=== PATIENT | female | born 1950 | race Caucasian/White ===

== ENCOUNTER 2018-05-14 07:32 | Emergency (ER) | payer MEDICAID, MEDICARE, OTHER ==
[2018-05-14 08:05] VITALS: BP 137/78
--- NOTE | 2018-05-14 08:16 | UC ---
Complaint Female HPI - HPI Summary HPI Summary: 68 female presents to the urgent care c/o Pt c/o some blood, and pain upon urination for the past 3 days. Pt states sx have gotten better, but worried about infection. - History Of Current Complaint Chief Complaint: UCGU Stated Complaint: URINARY ISSUE Time Seen by Provider: 05/14/18 08:15 Hx Obtained From: Patient Onset/Duration: Lasting Days - 3 days, Still Present - mild Severity Initially: Moderate Severity Currently: Mild Pain Intensity: 3 Pain Scale Used: 0-10 Numeric Character: Burning Aggravating Factor(s): Urination Associated Signs And Symptoms: Positive: Negative. Negative: Fever, Back Pain, Vaginal Discharge, Nausea, Vomiting(# Of Episodes =), Genital Swelling Related Hx: Similar Episode/Dx as: - UTI a month ago - Allergies/Home Medications Allergies/Adverse Reactions: Allergies Allergy/AdvReac Type Severity Reaction Status Date / Time clindamycin Allergy Intermediate Diarrhea Verified 05/14/18 07:55 Penicillins Allergy Intermediate Diarrhea Verified 05/14/18 07:55 ciprofloxacin Allergy Unknown Verified 05/14/18 07:55 Reaction Details PMH/Surg Hx/FS Hx/Imm Hx Previously Healthy: Yes - Pt denies PMHX - Surgical History Surgical History: Yes Surgery Procedure, Year, and Place: facial reconstruction as a child - 1965, tonsils - Family History Known Family History: Positive: Hypertension Family History: brain cancer - Social History Occupation: Unemployed Lives: Alone Alcohol Use: Occasionally Alcohol Amount: 12oz Substance Use Type: None Smoking Status (MU): Light Every Day Tobacco Smoker Amount Used/How Often: 2 cigs/ day Household Exposure Type: Cigarettes - Immunization History Most Recent Influenza Vaccination: unknown Most Recent Tetanus Shot: unknown Most Recent Pneumonia Vaccination: unknown Review of Systems All Other Systems Reviewed And Are Negative: Yes Physical Exam - Summary Physical Exam Summary: VITAL SIGNS: Reviewed. GENERAL: Patient is a well developed and nourished female who is sitting comfortable in the examining table. Patient is not in any acute respiratory distress. HEAD AND FACE: No signs of trauma. No ecchymosis, hematomas or skull depressions. No sinus tenderness. EYES: PERRLA, EOMI x 2, No injected conjunctiva, clear watery eyes, no nystagmus. No photophobia. EARS: Hearing grossly intact. Ear canals and tympanic membranes are within normal limits. MOUTH: pharynx with no erythema, no exudates,no palatal petechiae. no B/L tonsillar enlargement Uvula in midline. NECK: Supple, trachea is midline, no lymphadenopathy, no JVD, no carotid bruit, no c-spine tenderness, neck with full ROM. CHEST: Symmetric, no tenderness at palpation LUNGS: Clear to auscultation bilaterally. No wheezing or crackles. CVS: Regular rate and rhythm, S1 and S2 present, no murmurs or gallops appreciated. ABDOMEN: Soft, non-tender. No signs of distention. No rebound no guarding, and no masses palpated. Bowel sounds are normal. BACK:no scoliosis or lesions, non tender to palpation, No B/L CVA tenderness EXTREMITIES: FROM in all major joints, no edema, no cyanosis or clubbing. NEURO: Alert and oriented x 3. No acute neurological deficits. Speech is normal and follows commands. SKIN: Dry and warm Triage Information Reviewed: Yes Vital Signs: Initial Vital Signs Temp 96.5 F 05/14/18 07:56 Pulse 64 05/14/18 07:56 Resp 16 05/14/18 07:56 BP 137/78 05/14/18 07:56 Pulse Ox 99 05/14/18 07:56 Complaint Female Dx - Course Course Of Treatment: PE:WNL, UA results: negative. Urine culture sent to lab since Pt insisted that symptoms are similar to last month. Urine culture last months was positive for E.Coli. Pt Rx Bactrim PO x 3days. Pt advised to start taking the Pyridium 100mg PO TID x 2 days she has at home and was Rx last month and she never took it. Advised to increase fluid intake. Urine sent for culture if any abnormality Pt will be notified for further treatment. Pt advised If symptoms do not improve to return to the urgent care or f/u with PCP. Pt understood and agreed. Left the clinic ambulating. - Differential Dx/Diagnosis Differential Diagnosis/HQI/PQRI: Cervicitis, Ovarian Torsion, Pelvic Inflammatory Disease, Renal Colic, Sexually Transmitted Disease, Urinary Tract Infection Provider Diagnosis: Dysuria, Bed bug bite Discharge - Sign-Out/Discharge Documenting (check all that apply): Patient Departure - D/C home All imaging exams completed and their final reports reviewed: No Studies - Discharge Plan Condition: Stable Disposition: HOME Prescriptions: Hydrocortisone 1% CREAM* [Hytone Cream 1%*] 1 applic TOPICAL BID #1 tube Sulfamethox/Trimethoprim DS* [Bactrim DS 800/160 TAB*] 1 tab PO BID #6 tab Patient Education Materials: Dysuria (ED), Bed Bugs (ED) Referrals: [facility] [place] [facility]ERR[facility] [Outside] - 3 Days Additional Instructions: 1- Please start taking the Pyridium 100mg PO you have at home, take 1 tab PO TID x 2 days to alleviate urinary symptoms. Increase increase fluid intake. drink cranberry juice. 2-Urine sent for culture if any abnormality, you will be notified for further treatment. If urine returns positive please start taking Bactrim PO BID x 3 days 3-Please if bed bugs rash increases in your body please use the Hydrocortisone topical cream as directed to alleviate rash and itchiness, Please contact the health department and notified them of the infestation has not resolved. Please Contact the following number below who can connect you with a social sciences department chair who can help you with your situation. You need also a Primary Care Doctor for further management in your health issues. DEPARTMENT OF FAMILY LAW ATTORNEY Human Services Building [address] / [place] [address] [facility] [address] [facility] [phone] - Billing Disposition and Condition Condition: STABLE Disposition: Home
--- NOTE | 2018-05-15 16:18 | UC ---
- Progress Note Progress Note: 05/15/2018 Urine culture final report: no growth. No change Paty Castellanos PA-C Course/Dx - Diagnoses Provider Diagnoses: Dysuria, Bed bug bite Discharge - Sign-Out/Discharge Documenting (check all that apply): Post-Discharge Follow Up All imaging exams completed and their final reports reviewed: No Studies - Discharge Plan Condition: Stable Disposition: HOME Prescriptions: Hydrocortisone 1% CREAM* [Hytone Cream 1%*] 1 applic TOPICAL BID #1 tube Sulfamethox/Trimethoprim DS* [Bactrim DS 800/160 TAB*] 1 tab PO BID #6 tab Patient Education Materials: Dysuria (ED), Bed Bugs (ED) [place] [facility] [place]] - 3 Days Additional Instructions: 1- Please start taking the Pyridium 100mg PO you have at home, take 1 tab PO TID x 2 days to alleviate urinary symptoms. Increase increase fluid intake. drink cranberry juice. 2-Urine sent for culture if any abnormality, you will be notified for further treatment. If urine returns positive please start taking Bactrim PO BID x 3 days 3-Please if bed bugs rash increases in your body please use the Hydrocortisone topical cream as directed to alleviate rash and itchiness, Please contact the health department and notified them of the infestation has not resolved. [phone] Please Contact the following number below who can connect you with a social insurance adviser who can help you with your situation. You need also a Primary Care Doctor for further management in your health issues. DEPARTMENT OF POWER AND RECOVERY SHIFT ENGINEER Human Services Building [address] / [place] [address] [facility] [address] [facility] [phone] - Billing Disposition and Condition Condition: STABLE Disposition: Home
== END 2018-05-14 09:23 | disposition home or self-care (01) ==
LOC: UCEAST 07:32
DX: R30.0 Dysuria (principal); T14.8XXA Other injury of unspecified body region, initial encounter; W57.XXXA Bitten or stung by nonvenomous insect and other nonvenomous arthropods, initial encounter; F17.210 Nicotine dependence, cigarettes, uncomplicated; Z88.0 Allergy status to penicillin; Z88.3 Allergy status to other anti-infective agents
CPT/HCPCS: 81003; 87086; 99212; G0463

== ENCOUNTER 2023-04-24 21:08 | Inpatient (IN) ==
[2023-04-24] MEDS: Lactated Ringers 1000 ml BAG 1,000 ML IV ONE (22:48)
[2023-04-24] MEDS: Ondansetron 4 mg VIAL 2 MG/ML 2 ml VIAL IV ONE (22:51)
[2023-04-24 22:57] LABS: ABS Lymphocytes 0.5 10^3/uL (1.0-4.8); ABS Monocytes 1.1 10^3/uL (0.0-0.9); ABS Neutrophils 5.9 10^3/uL (1.5-7.6); Hematocrit 40.8 % (35-45); Hemoglobin 13.9 g/dL (11.5-14.3); Lymphocyte % 6.4 %; Mean Corpuscular Hemoglobin 32.5 pg (27-33); Mean Corpuscular Hgb Conc 34.1 g/dL (31-36); Mean Corpuscular Volume 95.4 fL (80-97); Mean Platelet Volume 7.2 fL (7.5-11.2); Platelet Count 192 10^3/uL (150-450); Red Blood Count 4.27 10^6/uL (3.63-4.92); White Blood Count 7.6 10^3/uL (3.8-11.8)
[2023-04-24 23:05] LABS: Activated Partial Thrombo Time 32.1 seconds (26.0-38.0); INR 0.97 (0.83-1.13)
[2023-04-24 23:31] LABS: ALT 31 U/L (7-52); AST 36 U/L (13-39); Albumin 4.4 g/dL (3.2-5.2); Albumin/Globulin Ratio 1.8 (1-3); Alcohol, S < 13 mg/dL (<13); Alkaline Phosphatase 104 U/L (35-149); Anion Gap 19 mmol/L (2-16); Blood Urea Nitrogen 9 mg/dL (6-24); CO2 Carbon Dioxide 22 mmol/L (22-32); Calcium 9.2 mg/dL (8.6-10.3); Chloride 96 mmol/L (101-111); Creatine Kinase 117 U/L (10-223); Creatinine, Serum 0.45 mg/dL (0.51-0.95); Globulin 2.4 g/dL (2-4); Glucose 121 mg/dL (70-100); Potassium 3.4 mmol/L (3.5-5.0); Sodium 137 mmol/L (135-145); Total Bilirubin 0.9 mg/dL (0.2-1.0); Total Protein 6.8 g/dL (6.4-8.9); eGFR CKD-EPI 101.5 (>60)
[2023-04-25] MEDS: Potassium Chlor 20 meq TAB.ER PO ONE ×2 (00:39→08:18)
[2023-04-25 00:54] LABS: High Sensitivity Troponin 1 Hr 5 pg/mL (<15)
[2023-04-25 01:25] LABS: Magnesium 1.9 mg/dL (1.9-2.7)
[2023-04-25] MEDS ORDERED: Nicotine GUM 2MG FRUIT FLAVOR PO PRN (01:54)
[2023-04-25] MEDS ORDERED: D5W 1/2 NS 1000 ml BAG 1,000 ML IV SCH (02:00)
[2023-04-25] MEDS: Acetaminophen IV 1 GM/100ML 1,000 MG/100 ML BAG IV SCH (02:21)
[2023-04-25] MEDS: Morphine 2 MG/ML SYRINGE IV PRN (02:51)
[2023-04-25] MEDS: Thiamine 100 MG/ML 2 ml VIAL 100 MG, Folic Acid IV 1 MG, Multiple Vitamin IV ADULT 10 M... IV ONE (03:17)
[2023-04-26] MEDS: Enoxaparin 30 MG/0.3 ML SYR SUBCUT SCH (10:00)
[2023-04-27] MEDS: cefTRIAXone VIAL 1,000 MG VIAL IM SCH (11:37)
[2023-04-27] MEDS: Haloperidol 5 mg/ml SDV IV/IM 5 MG/ML AMP IM PRN (16:45)
[2023-04-27] MEDS: Haloperidol 5 mg/ml SDV IV/IM 5 MG/ML AMP IM ONE (17:35)
[2023-04-27] MEDS: Haloperidol 5 mg/ml SDV IV/IM 5 MG/ML AMP ONE (17:41)
[2023-04-28] MEDS ORDERED: Lorazepam PYXIS KEY PRN (11:28)
[2023-04-28] MEDS ORDERED: DIAZEPAM IV SCH (14:00)
[2023-04-28 15:45] LABS: ABS Lymphocytes 1.2 10^3/uL (1.0-4.8); ABS Monocytes 1.1 10^3/uL (0.0-0.9); ABS Neutrophils 4.6 10^3/uL (1.5-7.6); Eosinophil % 0.7 %; Lymphocyte % 16.8 %; Mean Corpuscular Hemoglobin 31.9 pg (27-33); Mean Corpuscular Hgb Conc 33.4 g/dL (31-36); Mean Corpuscular Volume 95.5 fL (80-97); Mean Platelet Volume 7.7 fL (7.5-11.2); Platelet Count 265 10^3/uL (150-450); Red Blood Count 3.77 10^6/uL (3.63-4.92); Red Cell Distribution Width 13.7 % (12-17); White Blood Count 6.9 10^3/uL (3.8-11.8)
[2023-04-28] MEDS: Thiamine 100 MG/ML 2 ml VIAL 100 MG, Folic Acid IV 1 MG, Multiple Vitamin IV ADULT 10 M... IV ONE (15:58)
[2023-04-28 16:05] LABS: Albumin 3.3 g/dL (3.2-5.2); Albumin/Globulin Ratio 1.4 (1-3); Calcium 8.1 mg/dL (8.6-10.3); Creatinine, Serum 0.4 mg/dL (0.51-0.95); Globulin 2.4 g/dL (2-4); Magnesium 1.9 mg/dL (1.9-2.7); Potassium 3.2 mmol/L (3.5-5.0); Total Protein 5.7 g/dL (6.4-8.9); eGFR CKD-EPI 104.4 (>60)
[2023-04-28] MEDS: cefTRIAXone 1 gm/50 mL D5W 1 GM/50 ML BAG IV SCH (16:10)
[2023-04-28] MEDS: Haloperidol 5 mg/ml SDV IV/IM 5 MG/ML AMP IV SLOW PU SCH (17:53)
[2023-04-28] MEDS: diazePAM INJ CARPUJECT 5 MG/ML SYRINGE IV SCH (18:13)
[2023-04-28] MEDS: Haloperidol 5 mg/ml SDV IV/IM 5 MG/ML AMP IM SCH (18:13)
[2023-04-28] MEDS: LORazepam 2 mg VIAL 1 ml IV PUSH SCH (18:21)
[2023-04-28] MEDS: KCL 20 MEQ/100 ML IVPREMIX 20 MEQ/100 ML BAG IV SCH (18:56)
[2023-04-29 03:39] LABS: Albumin/Globulin Ratio 1.5 (1-3); Creatinine, Serum 0.33 mg/dL (0.51-0.95); Potassium 4.3 mmol/L (3.5-5.0); Total Bilirubin 0.9 mg/dL (0.2-1.0); eGFR CKD-EPI 109.4 (>60)
[2023-04-29 04:21] LABS: Urine Benzodiazepine Screen None Detected (None Detect); Urine Cannabinoids Screen None Detected (None Detect); Urine Opiates Screen Presumptive Positive (None Detect)
[2023-04-29 04:50] LABS: Urine Buprenorphine Screen None Detected (None Detect); Urine Fentanyl Screen None Detected (None Detect); Urine Hydrocodone Screen None Detected (None Detect)
[2023-04-29] MEDS: diazePAM INJ CARPUJECT 5 MG/ML SYRINGE IV PRN (06:59)
[2023-04-29] MEDS ORDERED: Desflurane 240 ML INH ONE (07:55)
[2023-04-29] MEDS ORDERED: Rocuronium 50 mg VIAL 10 mg/ml 5 ml VIAL (50 mg) ONE (07:55)
[2023-04-29] MEDS ORDERED: Succinylcholine 200 mg VIAL 20 mg/ml 10 ml VIAL (200 mg) ONE (07:55)
[2023-04-29] MEDS ORDERED: fentaNYL 100 mcg/2 ml 50 MCG/ML VIAL ONE ×2 (08:00→10:27)
[2023-04-29] MEDS ORDERED: fentaNYL 100 mcg/2 ml 50 MCG/ML VIAL IV PRN (12:44)
[2023-04-29] MEDS: ceFAZolin 2 GM PREMIX 2 GM/50 ML BAG IVPB ONE (13:43)
[2023-04-29] MEDS: ceFAZolin 1 GM ADVAN 1 GM in NS 0.9% 50 ML 50 ML IVPB SCH (16:11)
[2023-04-30 05:42] LABS: ABS Lymphocytes 0.8 10^3/uL (1.0-4.8); ABS Monocytes 1.5 10^3/uL (0.0-0.9); Hematocrit 31.6 % (35-45); Lymphocyte % 8.1 %; Mean Corpuscular Hgb Conc 34.7 g/dL (31-36); Mean Platelet Volume 7.5 fL (7.5-11.2); Platelet Count 274 10^3/uL (150-450); Red Blood Count 3.32 10^6/uL (3.63-4.92); Red Cell Distribution Width 13.5 % (12-17); White Blood Count 10.3 10^3/uL (3.8-11.8)
[2023-04-30 05:55] LABS: Calcium 7.8 mg/dL (8.6-10.3); Creatinine, Serum 0.37 mg/dL (0.51-0.95); Potassium 3.6 mmol/L (3.5-5.0); eGFR CKD-EPI 106.4 (>60)
[2023-05-01 10:19] LABS: ABS Basophils 0.1 10^3/uL (0.0-0.1); ABS Eosinophils 0.1 10^3/uL (0.0-0.5); ABS Lymphocytes 0.9 10^3/uL (1.0-4.8); ABS Monocytes 1.4 10^3/uL (0.0-0.9); ABS Neutrophils 7.2 10^3/uL (1.5-7.6); Eosinophil % 1.1 %; Hematocrit 27.8 % (35-45); Hemoglobin 9.8 g/dL (11.5-14.3); Lymphocyte % 9.6 %; Mean Corpuscular Hemoglobin 33.1 pg (27-33); Mean Corpuscular Hgb Conc 35.2 g/dL (31-36); Mean Platelet Volume 7.4 fL (7.5-11.2); Platelet Count 293 10^3/uL (150-450); Red Blood Count 2.96 10^6/uL (3.63-4.92); Red Cell Distribution Width 13.4 % (12-17); White Blood Count 9.6 10^3/uL (3.8-11.8)
[2023-05-01] MEDS ORDERED: Polyethylene Glycol 3350 17 GM PACKET PO PRN (10:20)
[2023-05-01] MEDS ORDERED: Magnesium Hydroxide LIQ 30 ML UDC PO PRN (10:20)
[2023-05-01] MEDS ORDERED: Senna TAB 8.6 mg TAB PO PRN (10:20)
[2023-05-01 10:36] LABS: Calcium 7.5 mg/dL (8.6-10.3); Creatinine, Serum 0.61 mg/dL (0.51-0.95); Magnesium 1.8 mg/dL (1.9-2.7); Potassium 3.2 mmol/L (3.5-5.0); eGFR CKD-EPI 94.3 (>60)
[2023-05-01] MEDS: Magnesium Sulfate 2 gm BAG 2 GM/50 ML BAG IVPB ONE (15:01)
[2023-05-01] MEDS: KCL 20 MEQ/100 ML IVPREMIX 20 MEQ/100 ML BAG IV SCH (15:47)
[2023-05-01] MEDS: Potassium Chlor 20 meq TAB.ER PO SCH (17:17)
[2023-05-01] MEDS: Magnesium Hydroxide LIQ 30 ML UDC PO SCH (21:05)
[2023-05-02] MEDS: Morphine 2 MG/ML SYRINGE IV PRN (20:50)
[2023-05-03 06:29] LABS: ABS Eosinophils 0.2 10^3/uL (0.0-0.5); ABS Lymphocytes 1.1 10^3/uL (1.0-4.8); Eosinophil % 3.3 %; Hematocrit 27.5 % (35-45); Hemoglobin 9.7 g/dL (11.5-14.3); Lymphocyte % 17.8 %; Mean Corpuscular Hemoglobin 33.3 pg (27-33); Mean Corpuscular Hgb Conc 35.1 g/dL (31-36); Mean Corpuscular Volume 94.9 fL (80-97); Mean Platelet Volume 7.1 fL (7.5-11.2); Nucleated Red Blood Cells % 0.1 %/100WBC (0.0-0.8); Platelet Count 469 10^3/uL (150-450); Red Cell Distribution Width 13.2 % (12-17); White Blood Count 6.3 10^3/uL (3.8-11.8)
[2023-05-03 07:20] LABS: Calcium 7.9 mg/dL (8.6-10.3); Creatinine, Serum 0.84 mg/dL (0.51-0.95); Potassium 4.4 mmol/L (3.5-5.0); eGFR CKD-EPI 73.3 (>60)
[2023-05-04 08:20] LABS: ABS Basophils 0.1 10^3/uL (0.0-0.1); ABS Eosinophils 0.1 10^3/uL (0.0-0.5); ABS Lymphocytes 1.4 10^3/uL (1.0-4.8); ABS Monocytes 0.9 10^3/uL (0.0-0.9); ABS Neutrophils 3.5 10^3/uL (1.5-7.6); Eosinophil % 1.9 %; Hematocrit 28.2 % (35-45); Hemoglobin 9.7 g/dL (11.5-14.3); Lymphocyte % 22.9 %; Mean Corpuscular Hemoglobin 33.1 pg (27-33); Mean Corpuscular Hgb Conc 34.6 g/dL (31-36); Mean Corpuscular Volume 95.8 fL (80-97); Mean Platelet Volume 6.7 fL (7.5-11.2); Platelet Count 561 10^3/uL (150-450); Red Blood Count 2.94 10^6/uL (3.63-4.92); Red Cell Distribution Width 13.5 % (12-17)
[2023-05-04 08:34] LABS: Calcium 8.4 mg/dL (8.6-10.3); Creatinine, Serum 0.48 mg/dL (0.51-0.95); Magnesium 2.3 mg/dL (1.9-2.7); Potassium 4.5 mmol/L (3.5-5.0)
[2023-05-04 10:20] LABS: Rapid COVID-19 Molecular Undetected (Undetected)
[2023-05-04 14:00] VITALS: BP 111/63
== END 2023-05-04 16:15 | DRG 522 ==
LOC: ED 21:08 → EDHOLD 04-25 00:58 → SUATTDRO 04-25 00:58 → SSU 04-25 01:25
PROVIDERS: ADMIT Hospitalist; ATTEND Hospitalist